=== PATIENT | female | born 1965 | race Caucasian/White ===

== ENCOUNTER 2016-09-20 10:33 | Inpatient (IN) | payer OTHER ==
--- NOTE | ~2016-09-20 | HP ---
Unit #: [id number] #: [id number] Patient: ELVI AVELAR [id number] [place] [address] [id number] I MR#: [id number] NAME: ELVI AVELAR. ROOM: P185 Age: 51 Sex: F Admission Date: 09/20/2016 : 1965 Attending Physician: Barry Miramontes M.D. Admitting Physician: Barry Miramontes M.D. Primary Care Physician: Levon Virgen M.D. HISTORY AND PHYSICAL HISTORY OF PRESENT ILLNESS Elvi is a 51 year old admitted to [facility] because of her polysubstance abuse which includes IV heroin and alcohol. PAST MEDICAL HISTORY 1. Long history of alcohol abuse. 2. History of opioid abuse to include IV heroin. 3. Hepatitis C. 4. History of withdrawal seizures. 5. High blood pressure. PAST SURGICAL HISTORY Hysterectomy. ALLERGIES No known drug allergies. SOCIAL HISTORY Smokes 1 pack per day. Drinks at least a fifth of liquor on a daily basis and admits to a long history of opioid abuse to include IV heroin. FAMILY HISTORY Medically noncontributory. REVIEW OF SYSTEMS CONSTITUTIONAL: No fever or chills. HEENT: Denies any sore throat, ear pain or runny nose. CARDIOVASCULAR: Denies chest pain, irregular heart rhythm or palpitations. CHEST: Denies shortness of breath or cough. No hemoptysis. GASTROINTESTINAL: Denies nausea, vomiting, diarrhea or chronic constipation. ENDOCRINE: Denies history of increased thirst or urination. No recent significant weight loss or gain. GENITOURINARY: Denies dysuria, frequency, or hematuria. SKIN: Denies any rashes. HEMATOLOGIC: Denies history of increased bleeding or bruising. MUSCULOSKELETAL: Denies any hot, swollen joints. No generalized muscle pain. NEUROLOGIC: Denies problems with vision or speech. No frequent, severe headaches. No numbness, tingling or weakness in any extremities. Denies loss of bladder or bowel control. CURRENT MEDICATIONS Unit #: [id number] #: [id number] Patient: ELVI AVELAR 1. Detox protocol. 2. ReVia 50 mg q.h.s. 3. Norvasc 5 mg daily. 4. Lotensin 20 mg daily. 5. Mobic 7.5 mg daily. 6. Motrin 400 mg q. 6 hours p.r.n. 7. Neurontin 600 mg q. 6 hours p.r.n. PHYSICAL EXAMINATION GENERAL: Alert, well-nourished, in no apparent distress. VITAL SIGNS: Blood pressure 150/100, heart rate 80, respirations 16, temperature 98.6. WEIGHT: 127. HEIGHT: 5 feet 5 inches. SKIN: Warm and dry without rash or lesion. HEENT: Normocephalic. TMs not viewed. Oral and nasal passages clear. Conjunctivae clear. PERRLA. EOMs intact. NECK: Supple without lymphadenopathy or thyromegaly. HEART: Regular rate and rhythm without murmur. LUNGS: Clear. ABDOMEN: Soft, nontender. : Not done. EXTREMITIES: No evidence of cyanosis, clubbing or edema. Moves all without focal deficit. NEUROLOGICAL: Grossly within normal limits. Cranial Nerves: II: Visual morales are intact. III, IV AND : Extraocular movements are intact. Pupils are equal, round and reactive to light. V: Facial sensation is grossly normal. VII: Facial movements and expression are normal. VIII: Auditory acuity grossly intact. IX, X: Uvula is midline. Phonation is normal. XI: Patient shrugs shoulders and turns head normally. XII: Tongue protrudes in the midline. Sensory and Motor Function: Sensory and motor sensation is grossly normal. Motor: moves all extremities well. Coordination: Gait is normal. Deep Tendon Reflexes: Intact. IMPRESSION Psychiatric admission. RECOMMENDATIONS PSYCHIATRIC: Per psychiatrist. MEDICAL: 1. See no contraindications to participate in facility's activities. 2. Will dc ibuprofen. Patient is also on Mobic. MEDICAL PROGNOSIS Good. MEDICAL CONDITION Stable. Dictated by... Agustina Padilla P.A.-C. for Anand Peng M.D. Unit #: [id number] #: [id number] Patient: ELVI AVELAR POLA/kristina TD: 09/20/2016 17:44 JOB #: [id number] HISTORY AND PHYSICAL Page 1 of 1 X Agustina Padilla HISTORY AND PHYSICAL
--- NOTE | ~2016-09-20 | PN ---
Unit #: [id number] #: [id number] Patient: AN AVELAR [id number] [facility] [address] [place] [address] [id number] MR#: [id number] NAME: AN AVELAR. ROOM: P185 Age: 51 Sex: F Admission Date: 09/20/2016 : 1965 Attending Physician: Barry Miramontes M.D. Admitting Physician: Barry Miramontes M.D. Primary Care Physician: Alan Pena PROGRESS NOTES DATE 09/23/2016 DISCUSSION The patient has begun p.o. ReVia in anticipation of possible initiation of Vivitrol once discharged from the hospital. She is in bright spirits and should she sustain progress discharge will likely take place in the next day or so. Dictated by... Barry Miramontes M.D. CB/guido TD: 09/24/2016 01:57 JOB #: [id number] OZZIE PROGRESS NOTES Page 1 of 1 X Barry Miramontes MD X PROGRESS NOTE
--- NOTE | ~2016-09-20 | PA ---
Unit #: [id number] #: [id number] Patient: AN AVELAR [id number] [place] [address] [id number] MR#: [id number] NAME: AN AVELAR. ROOM: [facility] Age: 51 Sex: F Admission Date: 09/20/2016 : 1965 Date of Assessment: 09/20/2016 Attending Physician: Barry Miramontes M.D. Admitting Physician: Barry Miramontes M.D. Primary Care Physician: Levon Virgen M.D. PSYCHIATRIC ASSESSMENT IDENTIFYING INFORMATION The patient is a 51-year-old white female admitted to the [address] [place] [address] with recurrent abuse of alcohol, opioids, and methamphetamine. CHIEF COMPLAINT "I relapsed." INFORMANT Patient, reliability is fair. HISTORY OF PRESENT ILLNESS The patient is a 51-year-old white female last hospitalized to this facility in 2014. She left this facility and went to the [facility] in [place], [place], and was able to maintain sobriety for about 2 years. Four months ago, her daughter gave to a child who was taken from custody secondary to being in opioid withdrawal. The patient reports that this was a trigger to her recent relapse of intravenous heroin, methamphetamine, and alcohol use. The patient denies suicidal ideation at the time of admission but was in significant physical distress and did exhibit elevation of pulse to 106 beats per minute. The patient states that she lives with her father who abuses alcohol. She expresses interest in reinitiation of residential chemical dependence treatment. For more complete history of present illness, please refer to previously dictated notes. PAST PSYCHIATRIC HISTORY Reviewed, no changes. PAST MEDICAL HISTORY Reviewed, no changes. MEDICATIONS At the time of admission, the patient's prescribed medications include gabapentin, clonidine, Meloxicam, and Lotrel. ALLERGIES None. FAMILY HISTORY Reviewed, no changes. SOCIAL HISTORY Reviewed, no changes. Unit #: [id number] #: [id number] Patient: AN AVELAR MENTAL STATUS EXAMINATION Examination at this time reveals the patient to be a well-developed well-nourished white female appearing her stated age of 51 years. She appears to be in significant physical distress related to opioid withdrawal. She is awake, alert, and oriented in all spheres. Her mood is dysphoric, her affect blunted. Speech is generally well-coherent. No gross deficits in memory or cognition noted. Intelligence is judged to be in the average range based on fund of knowledge. The patient is cooperative throughout the interview. She is currently denying suicidal or homicidal ideation or psychotic features. Judgment and insight appear to be reasonably intact. ASSETS AND LIABILITIES The patient's assets: Motivation for change. Liabilities: Lack of resources. DIAGNOSTIC IMPRESSION 1. Methamphetamine use disorder. 2. Opioid use disorder. 3. Alcohol use disorder. TREATMENT PLAN The patient remains hospitalized for safety and stabilization. Routine detoxification protocol to cover both alcohol and opioids has been initiated. The patient will participate in appropriate order of milieu activities, and suicide precautions remain in place despite the patient's belief that she is not suicidal at this time. We will begin ReVia on 09/22/2016 given the patient's wish to begin Vivitrol injections. ESTIMATED LENGTH OF STAY 3 to 5 days. Dictated by... Barry Miramontes M.D. JARRETT/cj TD: 09/20/2016 14:45 JOB #: [id number] PSYCHIATRIC ASSESSMENT Page 1 of 1 X Barry Miramontes MD X PSYCHIATRIC ASSESSMENT
--- NOTE | ~2016-09-20 | PN ---
Unit #: [id number] #: [id number] Patient: AN AVELAR [id number] [facility] [address] [place] [address] [id number] MR#: [id number] NAME: AN AVELAR. ROOM: [facility] Age: 51 Sex: F Admission Date: 09/20/2016 : 1965 Attending Physician: Barry Miramontes M.D. Admitting Physician: Barry Miramontes M.D. Primary Care Physician: Alan Pena PROGRESS NOTES DATE 09/22/2016 DISCUSSION The patient is abed resting comfortably. Staff reports no management issue. She will begin p.o. ReVia tonight in anticipation of possible treatment with the Vivitrol injection. Dictated by... Barry Miramontes M.D. CB/kristina TD: 09/22/2016 15:40 JOB #: [id number] OZZIE PROGRESS NOTES Page 1 of 1 X Barry Miramontes MD X PROGRESS NOTE
--- NOTE | ~2016-09-20 | A ---
[facility] Nutrition Therapy DATE: 09/21/16 Patient: AN AVELAR Physician: MACARIO Address: [address] [facility] Room/Bed: [address], Zip: [place] [address] Admit Date: 09/20/16 Date of : [birth year] Height: 5 5 Weight: [phone] NUTRITIONAL ASSESSMENT: REASON: 1 NUTRITIONAL RISK POINT- UNINTENTIONAL WEIGHT LOSS PATIENT ADMITTED FOR ETOH AND HEROIN DETOX PMH: HTN, HEP C, HX WITHDRAWAL SEIZURES, LONG HX POLYSUBSTANCE ABUSE Anthropometrics: HT: 5'5", WT: 127#, BMI: 21.1, %IBW: 102 Labs: NO LABS AVAILABLE Meds: NEURONTIN, MVI, DETOX PROTOCOL Assessment: CHART REVIEWED, EVENTS NOTED. PATIENT IS A 51 Y/O FEMALE ADMITTED FOR ETOH AND HEROIN DETOX. PATIENT IS CURRENTLY SELF-EMPLOYED, LIVES WITH DISABLED FATHER, SMOKES 1 PPD, AND HAS DAILY USE OF ETOH, HEROIN, AND BENZOS. PATIENT RELAPSED 4 MONTHS AGO FOLLOWING 2 YEARS OF SOBRIETY, AND SHE HAS A HX OF INPATIENT CHEMICAL DEPENDENCY TREATMENT. PATIENT STATED A FAIR APPETITE WITH A 15# WEIGHT LOSS OVER LAST SEVERAL MONTHS. WEIGHT HX PER [employer] SHOWS A 2# WEIGHT LOSS X 1 MONTH, AND A HX OF FLUCTUATING WEIGHTS BETWEEN 110-138# OVER LAST 10 YEARS. PATIENT'S STATED WEIGHT LOSS SEEMS TO COINCIDE WITH RELAPSE. THIS RD BELIEVES WEIGHT AND APPETITE WILL STABILIZE FOLLOWING DETOX. PATIENT'S BMI IS WITHIN A HEALTHY RANGE OF 19-25 AND SHE IS 102% OF HER IBW. PATIENT IS ON A REGULAR DIET WITH NO CAFFEINE. THERE ARE NO SKIN OR GI ISSUES NOTED ATT. Dx: UNINTENTIONAL WEIGHT LOSS R/T CURRENT CONDITION, DETOX AEB 1 POINT NUTRITIONAL RISK SCORE, SELF-REPORTED WEIGHT LOSS Intervention: 1. REGULAR DIET, 2. MEDS PER MD, 3. DETOX, 4. PSYCH Monitoring, Evaluation and Goals: 1. ADEQUATE PO INTAKES >50% OF MEALS 2. PREVENT, CORRECT MICRO/MACRO NUTRIENT DEFICIENCIES MONITOR: WEIGHTS, LABS, PO/FLUID INTAKES Recommendations: 1. CONTINUE REGULAR DIET TOLERATED. OFFER SNACKS BETWEEN MEALS. IF PATIENT HAS C/O HUNGER PLEASE SEND ORDER FOR LARGE PORTION ENTREES AND RD WILL APPROVE 2. ENCOURAGE ADEQUATE PO AND FLUID INTAKES 3. IF PO INTAKES FALL BELOW 50% OF MEALS PLEASE ORDER ENSURE BID TO PROMOTE ADEQUATE KCAL [facility] Nutrition Therapy DATE: 09/21/16 Patient: AN AVELAR Physician: MACARIO Address: [id number] [place] [address] Room/Bed: [address], Zip: [place] [address] Admit Date: 09/20/16 Date of : [birth year] Height: 5 5 Weight: [phone] TO F/U PER PROTOCOL AND PRN R/T PATIENT MILDLY COMPROMISED Respectfully, RUTH BYRNES, RD, LD [facility] cc: client file
--- NOTE | ~2016-09-20 | PN ---
Unit #: [id number] #: [id number] Patient: AN AVELAR [id number] [facility] [address] [place] [address] [id number] I MR#: [id number] NAME: AN AVELAR. ROOM: [facility] Age: 51 Sex: F Admission Date: 09/20/2016 : 1965 Attending Physician: Barry Miramontes M.D. Admitting Physician: Barry Miramontes M.D. Primary Care Physician: Alan Pena PROGRESS NOTES DATE 09/21/2016 DISCUSSION The patient is abed resting comfortably today. We will begin ReVia challenge tomorrow as the patient has expressed interest Vivitrol injections. Dictated by... Barry Miramontes M.D. CB/dzh TD: 09/21/2016 15:12 JOB #: [id number] OZZIE PROGRESS NOTES Page 1 of 1 X Barry Miramontes MD X PROGRESS NOTE
--- NOTE | ~2016-09-20 | DS ---
Unit #: [id number] #: [id number] Patient: AN AVELAR [id number] [facility] [address] [place] [address] [id number] MR#: [id number] NAME: AN AVELAR. ROOM: [facility] Age: 51 Sex: F Admission Date: 09/20/2016 : 1965 Discharge Date: 09/24/2016 Attending Physician: Barry Miramontes M.D. Primary Care Physician: Levon Virgen M.D. DISCHARGE SUMMARY REASON FOR ADMISSION The patient is a 51-year-old white female with a history of opioid dependence, admitted to the hospital for detox and initiation of naltrexone. HOSPITAL COURSE The patient was admitted to the [facility] unit and placed on suicide precautions. A routine detoxification protocol was ordered and the patient was begun on ReVia on 09/22/2016. She tolerated p.o. ReVia without complaint and on 09/25/2015 was agreeable to plan for initiation of Vivitrol injectable following discharge which took place on that date. FOLLOWUP The patient will follow up through the auspices of the chemical dependency intensive outpatient program. FINAL DIAGNOSES Opioid use disorder, alcohol use disorder, methamphetamine use disorder. DISPOSITION ON DISCHARGE The patient is discharged on the following medications; naltrexone 380 mg q.4 weeks for opioid craving. DISCHARGE INSTRUCTIONS No dietary or physical restrictions were placed upon the patient at the time of discharge. FOLLOWUP Followup will take place in the intensive outpatient program provided by this facility. PROGNOSIS The patient's prognosis is considered fair. Dictated by... Barry Miramontes M.D. CB/dolores TD: 09/24/2016 23:57 JOB #: [id number] Unit #: [id number] #: [id number] Patient: AN AVELAR DISCHARGE SUMMARY Page 1 of 1 X Barry Miramontes MD X DISCHARGE SUMMARY
[~2016-09-20 10:33] MED LIST: ALBUTEROL INH; ALBUTEROL17 GM INH; AZOR; AZOR PO; BACTRIM DS TABL1 TAB PO; CLONIDINE HCL0.1 MG PO; DIFLUCAN PO; DOLOBID500 MG PO; DOXYCYCLINE PO; KEFLEX PO; LISINOPRIL20 MG PO; LOTREL 5/10 MG1 CAP PO; NEURONTIN PO; NO MEDICATIONS; PERCOCET5/325 PO; PREDNISONE PO; TESSALON200 MG PO; VIBRAMYCIN100 M1 DOB; VIBRAMYCIN100 M1 PO; VICODIN 5/500 T1 TAB PO; VOLTAREN75 MG PO; ZITHROMAX PO
[2016-09-21 12:36] LABS: BASOPHIL% 0.4 % (0-2.5); EOSINOPHIL# 0.1 X10e3 (0-0.7); EOSINOPHIL% 1.1 % (0.0-7.0); HEMATOCRIT 40.9 % (35.0-45.0); HEMOGLOBIN 13.1 gm/dL (12.0-16.0); LYMPHOCYTE# 1.5 X10e3 (1.0-3.5); LYMPHOCYTE% 23.4 % (17.0-45.0); MEAN CELL VOLUME 85.7 FL (83-96); MEAN CORPUSCULAR HEMOGLOBIN 27.5 PG (28-34); MEAN CORPUSCULAR HGB CONC 32.1 g/dL (30-36); MEAN PLATELET VOLUME 7.5 FL (6.5-11.5); MONOCYTE# 0.3 X10e3 (0-1.0); MONOCYTE% 5.2 % (3.0-12.0); NEUTROPHIL# 4.5 X10e3 (1.5-7.1); NEUTROPHIL% 69.9 % (40-75); PLATELET COUNT 303 X10e3 (140-420); RED BLOOD COUNT 4.77 X10e (3.90-5.30); RED CELL DISTRIBUTION WIDTH 14.2 % (11.0-15.5); WHITE BLOOD COUNT 6.4 X10e3 (4.0-10.5)
[2016-09-21 12:43] LABS: DIFF IND NO
[2016-09-21 13:45] LABS: ALBUMIN SERUM 3.7 g/dL (3.5-5.0); BILIRUBIN,TOTAL 0.5 mg/dL (0.2-2.0); CALCIUM SERUM 9.6 mg/dL (8.4-10.2); CREATININE SERUM 0.7 mg/dL (0.6-1.4); PROTEIN TOTAL SERUM 6.9 g/dL (6.0-8.3)
[2016-09-21 13:50] LABS: THYROID STIMULATING HORMONE 0.09 uIU/ml (0.34-5.60)
[2016-09-21 14:00] LABS: FREE THYROXIN (T4) 0.79 ng/dL (0.58-1.64)
[2016-09-22 12:09] LABS: URINE APPEARANCE CLEAR; URINE BILIRUBIN NEG (NEG); URINE BLOOD NEG (NEG); URINE COLOR YELLOW; URINE GLUCOSE NEG (NEG); URINE KETONE NEG (NEG); URINE LEUKOCYTE ESTERASE NEG (NEG); URINE NITRATE NEG (NEG); URINE PROTEIN NEG (NEG); URINE SPECIFIC GRAVITY 1.007 (1.003-1.035); URINE UROBILINOGEN 0.2 MG/DL (NEG)
[2016-09-22 12:23] LABS: AMPHETAMINE NEG (NEG); BARBITURATES NEG (NEG); BENZODIAZEPINES POS (NEG); COCAINE NEG (NEG); MARIJUANA NEG (NEG); OPIATES POS (NEG); TRICYCLIC ANTIDEPRESSANTS NEG (NEG); U METHADONE NEG (NEG)
[2016-10-15] MEDS ORDERED: AMLODIPINE BESYL5 MG (08:04)
[2016-10-15] MEDS ORDERED: VIVITROL380 MG (08:05)
== END 2016-09-24 15:00 | disposition home or self-care (01) | DRG 897 ==
LOC: P1E 10:33
PROVIDERS: Specialist
PROC: HZ2ZZZZ Detoxification Services for Substance Abuse Treatment (ICD-10-PCS; principal; 2016-09-20)
DX: F15.20 Other stimulant dependence, uncomplicated (principal); F11.20 Opioid dependence, uncomplicated; R45.851 Suicidal ideations; F10.20 Alcohol dependence, uncomplicated; B19.20 Unspecified viral hepatitis C without hepatic coma; F17.200 Nicotine dependence, unspecified, uncomplicated; I10 Essential (primary) hypertension
CPT/HCPCS: 80053; 80307; 81003; 84439; 84443; 85025; 86592

== ENCOUNTER 2016-10-15 08:25 | Emergency (ER) | payer OTHER ==
[~2016-10-15 08:25] MED LIST changes: +AMLODIPINE BESYL5 MG; +VIVITROL380 MG
== END 2016-10-15 08:30 | disposition home or self-care (01) ==
LOC: SED 08:25
DX: S16.1XXA Strain of muscle, fascia and tendon at neck level, initial encounter (principal); J44.9 Chronic obstructive pulmonary disease, unspecified; I10 Essential (primary) hypertension; F17.200 Nicotine dependence, unspecified, uncomplicated; Z90.710 Acquired absence of both cervix and uterus; X58.XXXA Exposure to other specified factors, initial encounter; Y92.9 Unspecified place or not applicable
CPT/HCPCS: 99282

== ENCOUNTER 2016-10-16 23:01 | Emergency (ER) | payer OTHER ==
--- NOTE | ~2016-10-16 | CR58 ---
[facility] A Service [facility] RADIOLOGY TEXT RESULTS PATIENT: AN AVELAR LOCATION: SED : [birth year] UNIT #: [id number] AGE: [address]: Rosaura Bernstein SEX: F ORDER DR: [id number] [place] [address] [id number] MR#: [id number] Acc #: [id number] NAME: AN AVELAR. : 1965 SEX: F STUDY DATE/TIME: 10/16/2016 23:35 UNIT: SED ROOM: STUDY DESCRIPTION: CR Cervical Spine 2 or 3 Views Attending Physician: Rosaura Bernstein Pa-C Ordering Physician: Victorino Mays M.D. Primary Care Physician: Levon Virgen M.D. MEDICAL IMAGING REPORT This report is preliminary unless electronic signature is present. EXAM Cervical spine 3 view series. INDICATION Chronic neck pain and numbness in hands x5 days. COMPARISON None. FINDINGS AP, lateral and odontoid views of the cervical spine were obtained. C1 through C4 are normal. There is marked degenerative change at C5-6 and C6-7. There is no fracture or subluxation or soft tissue swelling. IMPRESSION Marked degenerative changes at C5-6 and C6-7 disc spaces, otherwise normal. Dictated by... Feliberto Danielle M.D. THIS IS AN ELECTRONICALLY VERIFIED REPORT Feliberto Danielle M.D. at 10/17/2016 5:31 AM JAZZY/michael TD: 10/17/2016 03:27 JOB #: [id number] MEDICAL IMAGING REPORT [facility] A [facility] RADIOLOGY TEXT RESULTS PATIENT: AN AVELAR LOCATION: SED : [birth year] UNIT #: [id number] AGE: [address]: Rosaura Bernstein SEX: F ORDER DR: Page 1 of 1
== END 2016-10-17 00:15 | disposition home or self-care (01) ==
LOC: SED 23:01
DX: M54.2 Cervicalgia (principal); J44.9 Chronic obstructive pulmonary disease, unspecified; I10 Essential (primary) hypertension; F17.210 Nicotine dependence, cigarettes, uncomplicated; Z90.710 Acquired absence of both cervix and uterus; Z79.899 Other long term (current) drug therapy
CPT/HCPCS: 72040; 96372; 99283; J1040; J1885

== ENCOUNTER 2016-10-24 09:09 | Emergency (ER) | payer OTHER | END 2016-10-24 10:24 | disposition home or self-care (01) | LOC: SED 09:09 | DX: M50.30 Other cervical disc degeneration, unspecified cervical region (principal); M51.36 Other intervertebral disc degeneration, lumbar region; J02.9 Acute pharyngitis, unspecified; I10 Essential (primary) hypertension; J44.9 Chronic obstructive pulmonary disease, unspecified; Z90.710 Acquired absence of both cervix and uterus; Z98.890 Other specified postprocedural states; Z79.899 Other long term (current) drug therapy | CPT/HCPCS: 87651; 99283 ==

== ENCOUNTER 2016-12-12 19:16 | Emergency (ER) | payer OTHER ==
--- NOTE | ~2016-12-12 | CR72 ---
[facility] A Service of [facility] RADIOLOGY TEXT RESULTS PATIENT: AN AVELAR LOCATION: SED : [birth year] UNIT #: [id number] AGE: [address]: Raul Wallace MD SEX: F ORDER DR: [id number] [place] [address] [id number] MR#: [id number] Acc #: [id number] NAME: AN AVELAR. : 1965 SEX: F STUDY DATE/TIME: 12/12/2016 19:22 UNIT: SED ROOM: STUDY DESCRIPTION: CR Chest Single View Portable Attending Physician: Raul Wallace M.D. Ordering Physician: Raul Wallace M.D. Primary Care Physician: Primary Care Physician No MEDICAL IMAGING REPORT This report is preliminary unless electronic signature is present. EXAM Frontal chest, 12/12/16 INDICATIONS 51-year-old female with a history of altered consciousness. Arrived at the ER unresponsive. CPR performed. Assessment of the lungs and ribs requested. Rib pain upon arousal. Overdose patient. Symptoms began today. History of cervical cancer. TECHNIQUE Frontal chest was performed. COMPARISON 01/27/15 FINDINGS Cardiac silhouette within normal limits. The aorta is elongated but stable. Mild pulmonary hyperinflation. Probable minimal atelectasis in lung bases. No dense consolidation, pneumothorax or effusion. IMPRESSION 1. Atelectatic changes in the lung bases, otherwise negative frontal chest. Mild hyperinflation. Dictated by... Hernesto Bacon M.D. THIS IS AN ELECTRONICALLY VERIFIED REPORT Hernesto Bacon M.D. at 12/12/2016 10:19 PM ARTI/mihir [facility] A Service [facility] RADIOLOGY TEXT RESULTS PATIENT: AN AVELAR LOCATION: SED : [birth year] UNIT #: [id number] AGE: [address]: Raul Wallace MD SEX: F ORDER DR: TD: 12/12/2016 21:12 JOB #: [id number] MEDICAL IMAGING REPORT Page 1 of 1
== END 2016-12-12 19:45 | disposition home or self-care (01) ==
LOC: SED 19:16
DX: T40.1X1A Poisoning by heroin, accidental (unintentional), initial encounter (principal); Z79.899 Other long term (current) drug therapy
CPT/HCPCS: 71010; 96361; 96374; 99291